=== PATIENT | male | born 1960 | race African-American/Black ===

== ENCOUNTER 2016-10-14 12:26 | Inpatient (IN) | payer OTHER ==
[2016-10-14 13:12] VITALS: BMI 29.8
--- NOTE | 2016-10-14 17:29 | HP ---
CIWA Score - CIWA Score Nausea/Vomitin Muscle Tremors: 4-Moderate,w/Arms Extend Anxiety: 4-Mod. Anxious/Guarded Agitation: 4-Moderately Restless Paroxysmal Sweats: 1-Minimal Palms Moist Orientation: 0-Oriented Tacttile Disturbances: 3-Moderate Itch/Numb/Burn Auditory Disturbances: 0-None Visual Disturbances: 0-None Headache: 1-Very Mild CIWA-Ar Total Score: 20 Admission ROS BHS - HPI Chief Complaint: DETOX TX FOR ALCOHOL DEPENDENCE Allergies/Adverse Reactions: Allergies Allergy/AdvReac Type Severity Reaction Status Date / Time No Known Allergies Allergy Verified 10/14/16 16:51 History of Present Illness: 56 Y/O AA/MALE WITH A HX OF ALCOHOL, COCAINE AND PCP DEPENDENCE SEEKING DETOX TX. FIRST TIME HERE. Exam Limitations: No Limitations - Ebola screening Have you traveled outside of the country in the last 21 days: No Have you had contact with anyone from an Ebola affected area: No Have you been sick,other than usual withdrawal symptoms: No Do you have a fever: No - Review of Systems Constitutional: Night Sweats, Changes in sleep EENT: reports: Blurred Vision (WEARS GLASSES), Tearing, Nose Congestion, Dental Problems (MISSING TEETH) Respiratory: reports: Shortness of Breath (CHF;STENT IN ONE ARTERY) Cardiac: reports: Lightheadedness GI: reports: Constipated, Diarrhea, Nausea, Vomiting : reports: Frequency Musculoskeletal: reports: Back Pain, Joint Pain, Muscle Pain Integumentary: reports: No Symptoms Reported Neuro: reports: Headache, Numbness, Tingling, Tremors, Unsteady Gait, Dizziness Endocrine: reports: No Symptoms Reported Hematology: reports: Anemia Psychiatric: reports: Orientated x3, Anxious, Depressed Other Systems: Reviewed and Negative Patient History - Patient Medical History Hx Anemia: Yes Hx Asthma: No Hx Chronic Obstructive Pulmonary Disease (COPD): No Hx Cardiac Disorders: Yes (CA HX WITH STENT IN 07/2014) Hx Congestive Heart Failure: Yes Hx Hypertension: Yes (ON MED) Hx Hypercholesterolemia: Yes (ON MED) HX Cerebrovascular Accident: No Hx Seizures: No Hx Diabetes: Yes (ON MED) Hx Gastrointestinal Disorders: No Hx Genitourinary Disorders: No Hx Sexually Transmitted Disorders: No Hx Renal Disease (ESRD): Yes (KIDNEY STONES REMOVED 3-4 TIMES) Hx Thyroid Disease: No Hx Human Immunodeficiency Virus (HIV): No (NEGATIVE HX) Hx Hepatitis C: No Hx Depression: Yes Hx Suicide Attempt: No (DENIES) Hx Schizophrenia: No - Patient Surgical History Past Surgical History: Yes Hx Neurologic Surgery: No Hx Cataract Extraction: No Hx Cardiac Surgery: Yes (CATHETERIZATION WITH STENT X 1) Hx Lung Surgery: No Hx Breast Surgery: No Hx Breast Biopsy: No Hx Abdominal Surgery: No Hx Appendectomy: No Hx Cholecystectomy: No Hx Genitourinary Surgery: No Hx Orthopedic Surgery: No Other Surgical History: KIDNEY STONES Anesthesia Reaction: No - PPD History Previous Implant?: Yes Documented Results: Negative w/o proof - Reproductive History Patient is a Female of Child Bearing Age (11 -55 yrs old): No (MALE) - Smoking Cessation Smoking history: Current some day smoker Have you smoked in the past 12 months: Yes Cigars Per Day: 5 (ONLY WITH CRACK) Hx Chewing Tobacco Use: No Initiated information on smoking cessation: Yes 'Breaking Loose' booklet given: 10/14/16 (DECLINED REPLACEMENT TX) - Substance & Tx. History Hx Alcohol Use: Yes (BEER) Hx Substance Use: Yes (COCAINE/PCP) Substance Use Type: Alcohol, Cocaine Hx Substance Use Treatment: Yes (LAST DETOX AT [facility] IN AUGUST 2016) - Substances Abused Alcohol Route: Oral Frequency: Daily Amount used: BEER- 1 SIX PACK-16oz Age of first use: 13 Date of Last Use: 10/13/16 PCP Route: Smoking Frequency: 1-2 times per week Amount used: 1 bag Age of first use: 13 Date of Last Use: 10/13/16 Cocaine Route: Smoking Frequency: Daily Amount used: 6 bags Age of first use: 24 Date of Last Use: 10/13/16 Family Disease History - Family Disease History Family Disease History: Diabetes: Father (HTN;AMPUTATION-), Other: Father, Mother (CVA-) Admission Physical Exam BHS - Vital Signs Vital Signs: Vital Signs - 24 hr 10/14/16 13:09 Temperature 96.0 F L Pulse Rate 85 Respiratory 20 Rate Blood Pressure 138/82 - Physical General Appearance: Yes: Moderate Distress, Irritable, Anxious HEENTM: Yes: EOMI, Normocephalic, BRAD, Photophobia Respiratory: Yes: Chest Non-Tender, Lungs Clear, Normal Breath Sounds Neck: Yes: Supple, Trachea in good position Breast: Yes: Breast Exam Deferred Cardiology: Yes: Regular Rhythm, Regular Rate, S1, S2 Abdominal: Yes: Normal Bowel Sounds, Non Tender, Soft Genitourinary: Yes: Other (N/C) Back: Yes: Within Normal Limits Musculoskeletal: Yes: full range of Motion, Gait Steady Extremities: Yes: Normal Range of Motion, Non-Tender Neurological: Yes: manager e learning II-XII NML intact, Fully Oriented, Alert Integumentary: Yes: Dry, Warm Lymphatic: Yes: Within Normal Limits - Diagnostic (1) Alcohol dependence with uncomplicated withdrawal Current Visit: Yes Status: Acute (2) Cocaine dependence, uncomplicated Current Visit: Yes Status: Acute (3) PCP dependence Current Visit: Yes Status: Acute (4) HTN (hypertension) Current Visit: Yes Status: Chronic Qualifiers: Hypertension type: essential hypertension Qualified Code(s): I10 - Essential (primary) hypertension (5) Status post myocardial infarction Current Visit: Yes Status: Resolved (6) Stented coronary artery Current Visit: Yes Status: Chronic (7) History of CHF (congestive heart failure) Current Visit: Yes Status: Chronic Comment: PT HISTORY (8) Type 2 diabetes mellitus Current Visit: Yes Status: Chronic (9) Hypercholesterolemia Current Visit: Yes Status: Chronic Cleared for Admission [facility] - Detox or Rehab [facility] Level of Care: Medically Managed Detox Regimen/Protocol: Librium [facility] Breath Alcohol Content Breath Alcohol Content: 0 Urine Drug Screen - Results Drug Screen Negative: No Urine Drug Screen Results: ANNETTE-Cocaine, PCP-Phencyclidine
[2016-10-14] MEDS ORDERED: MAGNESIUM HYDROX 2400MG/30ML ORAL SUSPENSION 30 ML CUP PO PRN (17:47)
[2016-10-14] MEDS ORDERED: P-EPHED 60MG/TRIPROLIDI 2.5MG TABLET PO PRN (17:47)
[2016-10-14] MEDS ORDERED: MAG HYDROX/AL HYDROX/SIMETH 30 ML UNIT-DOSE CUP PO PRN (17:47)
[2016-10-14] MEDS ORDERED: guaiFENesin/D-METHORPHAN HB 10 ML UNIT-DOSE CUPS PO PRN (17:47)
[2016-10-14] MEDS ORDERED: chlordiazePOXIDE HCL 25 MG CAPSULE PO PRN (17:47)
[2016-10-14] MEDS ORDERED: MAGNESIUM CITRATE 300 ML BOTTLE PO PRN (17:47)
[2016-10-14] MEDS ORDERED: chlordiazePOXIDE HCL 25 MG CAPSULE PO ONE (17:47)
[2016-10-14] MEDS ORDERED: diphenhydrAMINE HCL 50 MG CAPSULE PO PRN (17:47)
[2016-10-14] MEDS ORDERED: IBUPROFEN 400 MG TABLET (FP) PO PRN (17:47)
[2016-10-14] MEDS ORDERED: MENTHOL/PHENOL 1 EACH UD MM PRN (17:47)
[2016-10-14] MEDS ORDERED: LOPERAMIDE HCL 2 MG CAPSULE PO PRN (17:47)
[2016-10-14] MEDS: SPIRONOLACTONE 25 MG TABLET (FP) PO SCH (19:05)
[2016-10-14] MEDS: LISINOPRIL 10 MG TABLET (FP) PO SCH (19:05)
[2016-10-14] MEDS: METOPROLOL SUCCINATE 25 MG TAB.SR.24H (FP) PO SCH (19:05)
[2016-10-14] MEDS: ASPIRIN COATED 81 MG TABLET.EC PO SCH (19:05)
[2016-10-14] MEDS ORDERED: metFORMIN HCL 500 MG TABLET (FP) PO ONE (19:13)
[2016-10-14 21:11] LABS: URINE APPEARANCE CLEAR; URINE BILIRUBIN NEGATIVE (NEGATIVE); URINE COLOR STRAW; URINE GLUCOSE (UA) 3+ (NEGATIVE); URINE KETONE NEGATIVE (NEGATIVE); URINE LEUK ESTERASE NEGATIVE (NEGATIVE); URINE NITRITE NEGATIVE (NEGATIVE); URINE PROTEIN NEGATIVE (NEGATIVE); URINE UROBILINOGEN NEGATIVE E.U./dl (0.2-1.0)
[2016-10-14 21:15] LABS: URINE BLOOD 2+ (NEGATIVE)
[2016-10-14 21:17] LABS: URINE RBC 17 /hpf (0-3); URINE WBC <1 /hpf (3-5)
[2016-10-14] MEDS ORDERED: CARVEDILOL 6.25 MG TABLET (FP) PO SCH (22:00)
[2016-10-14] MEDS: chlordiazePOXIDE HCL 25 MG CAPSULE PO SCH (22:54)
[2016-10-14] MEDS: THIAMINE HCL 100 MG TABLET (FP) PO SCH (22:55)
[2016-10-14] MEDS: GABAPENTIN 100 MG CAPSULE (FP) PO SCH (22:55)
[2016-10-15] MEDS: GABAPENTIN 100 MG CAPSULE (FP) PO SCH ×5 (05:57→22:05)
[2016-10-15] MEDS: chlordiazePOXIDE HCL 25 MG CAPSULE PO SCH ×4 (05:57→22:05)
[2016-10-15] MEDS: INSULIN SLIDING SCALE (NOVOLOG) 1 VIAL SQ SCH ×2 (06:40→18:31)
[2016-10-15] MEDS: metFORMIN HCL 500 MG TABLET (FP) PO SCH ×2 (06:40→18:31)
[2016-10-15] MEDS ORDERED: PRENATAL VITAMINS W/ FOLIC ACID TABLET (FP) PO SCH (10:00)
[2016-10-15 10:10] LABS: MCHC 32.9 g/dl (32.0-35.9); MEAN CELL VOLUME 91.2 fl (80-96); MEAN PLT VOLUME 9.4 fl (7.5-11.1); PLATELET COUNT 193 K/MM3 (134-434); RDW 13.7 % (11.9-15.9); WHITE BLOOD COUNT 6.4 K/mm3 (4.0-10.0)
--- NOTE | 2016-10-15 10:28 | PN ---
S CIWA - CIWA Score Nausea/Vomitin Muscle Tremors: 3 Anxiety: 3 Agitation: 3 Paroxysmal Sweats: 2 Orientation: 0-Oriented Tacttile Disturbances: 1-Very Mild Itch/Numbness Auditory Disturbances: 1-Very Mild Visual Disturbances: 1-Very Mild Sensitivity Headache: 2-Mild CIWA-Ar Total Score: 19 S Progress Note (SOAP) Subjective: ALERT,IRRITABLE,ANXIOUS,INTERRUPTED SLEEP,TREMOR Objective: 10/15/16 10:26 Vital Signs Temperature 95.9 F L 10/15/16 09:38 Pulse Rate 82 10/15/16 09:38 Respiratory Rate 20 10/15/16 09:38 Blood Pressure 140/86 10/15/16 09:38 O2 Sat by Pulse Oximetry (%) EKG NSR,NORMAL ECG 10/15/16 10:26 Laboratory Last Values Sodium 138 mmol/L (136-145) 10/15/16 06:00 Potassium 4.5 mmol/L (3.5-5.1) 10/15/16 06:00 Chloride 101 mmol/L (98-107) 10/15/16 06:00 POC Glucometer 313 UNITS (()) 10/15/16 06:00 Urine Color Straw 10/14/16 20:45 Urine Appearance Clear 10/14/16 20:45 Urine pH 5.0 (5.0-8.0) 10/14/16 20:45 Ur Specific [place] 1.015 (1.005-1.025) 10/14/16 20:45 Urine Protein Negative (NEGATIVE) 10/14/16 20:45 Urine Glucose (UA) 3+ (NEGATIVE) H 10/14/16 20:45 Urine Ketones Negative (NEGATIVE) 10/14/16 20:45 Urine Blood 2+ (NEGATIVE) H 10/14/16 20:45 Urine Nitrite Negative (NEGATIVE) 10/14/16 20:45 Urine Bilirubin Negative (NEGATIVE) 10/14/16 20:45 Urine Urobilinogen Negative E.U./dl (0.2-1.0) 10/14/16 20:45 Ur Leukocyte Esterase Negative (NEGATIVE) 10/14/16 20:45 Urine RBC 17 /hpf (0-3) 10/14/16 20:45 Urine WBC <1 /hpf (3-5) 10/14/16 20:45 Ur Epithelial Cells Rare /hpf (FEW) 10/14/16 20:45 LABS PENDING Assessment: 10/15/16 10:27 WITHDRAWAL SYMPTOM Plan: CONTINUE DETOX,REPEAT UA
[2016-10-15] MEDS ORDERED: CLOPIDOGREL BISULFATE 75 MG TABLET (FP) PO SCH (10:45)
--- NOTE | 2016-10-15 10:59 | EKG ---
Test Reason : Blood Pressure : / mmHG Vent. Rate : 071 BPM Atrial Rate : 071 BPM P-R Int : 182 ms QRS Dur : 092 ms QT Int : 392 ms P-R-T Axes : 045 078 069 degrees QTc Int : 425 ms NORMAL SINUS RHYTHM NORMAL ECG NO PREVIOUS ECGS AVAILABLE Confirmed by EMILY JARQUIN MD ([id number]) on 10/15/2016 10:58:59 AM Referred By: Confirmed By:EMILY JARQUIN MD
[2016-10-15] MEDS: ASPIRIN COATED 81 MG TABLET.EC PO SCH (11:09)
[2016-10-15] MEDS: METOPROLOL SUCCINATE 25 MG TAB.SR.24H (FP) PO SCH (11:09)
[2016-10-15] MEDS: SPIRONOLACTONE 25 MG TABLET (FP) PO SCH (11:09)
[2016-10-15] MEDS: LISINOPRIL 10 MG TABLET (FP) PO SCH (11:10)
[2016-10-15 11:14] LABS: ALBUMIN 3.6 g/dl (3.4-5.0); BILIRUBIN,TOTAL 0.4 mg/dL (0.2-1.0); CALCIUM 9.3 mg/dL (8.5-10.1); COCKROFT - GAULT 75.44; CREATININE 1.4 mg/dL (0.7-1.3); TOT PROT 7.2 g/dl (6.4-8.2)
[2016-10-15 12:40] LABS: SICKLE CELL SCREEN NEGATIVE (NEGATIVE)
--- NOTE | 2016-10-15 16:16 | CONSULT ---
[facility] Psychiatric Consult - Data Date of interview: 10/15/16 Admission source: [facility] Identifying data: First admission to [facility] for this 56 y/o AA male seeking detox treatment for alcohol,cocaine and phencyclidine dependence.Patient is single without children,homeless,unemployed and supported on welfare. Substance Abuse History: - Smoking Cessation. Smoking history: Current some day smoker. Have you smoked in the past 12 months: Yes. Cigars Per Day: 5 ( ONLY WITH CRACK). Hx Chewing Tobacco Use: No. Initiated information on smoking cessation: Yes. 'Breaking Loose' booklet given: 10/14/16 (DECLINED REPLACEMENT [place]). - Substance & Tx. History. Hx Alcohol Use: Yes (BEER). Hx Substance Use: Yes (COCAINE/PCP). Substance Use Type: Alcohol, Cocaine. Hx Substance Use Treatment: Yes (LAST DETOX AT [facility] IN AUGUST 2016). - Substances Abused. Alcohol. Route: Oral. Frequency: Daily. Amount used: BEER- 1 SIX PACK-16oz. Age of first use: 13. Date of Last Use: 10/13/16. PCP. Route: Smoking. Frequency: 1-2 times per week. Amount used: 1 bag. Age of first use : 13. Date of Last Use: 10/13/16. Cocaine. Route: Smoking. Frequency: Daily. Amount used: 6 bags. Age of first use: 24. Date of Last Use: . Confirmed by patient. Medical History: Anemia,CHF,history of myocardial infarction in 2014 (stent placement),diabetes mellitus,dyslipidemia,neuropathy,hypertension and nephrolithiasis. Psychiatric History: No reported history of psychiatric hospitalizations.No background of psychiatric OPD care.Mr Booker reports that he sees a " therapist " in [facility] for a " psychosocial " report,a crucial document to support his quest for housing.Not on psychotropic medications.Patient denies history of suicide attempts. Physical/Sexual Abuse/Trauma History: Patient denies. Additional Comment: Urine Drug Screen Results: ANNETTE-Cocaine, PCP- Phencyclidine.Noted. Mental Status Exam - Mental Status Exam Alert and Oriented to: Time, Place, Person Cognitive Function: Good Patient Appearance: Well Groomed Mood: Hopeful, Euthymic Affect: Appropriate, Normal Range Patient Behavior: Appropriate, Cooperative (friendly) Speech Pattern: Clear, Appropriate Voice Loudness: Normal Thought Process: Intact, Goal Oriented Thought Disorder: Not Present Hallucinations: Denies Suicidal Ideation: Denies Homicidal Ideation: Denies Insight/Judgement: Fair Sleep: Well Appetite: Good Muscle strength/Tone: Normal Gait/Station: Normal Psychiatric Findings - Problem List ([place] 1, 2,3) (1) Alcohol dependence with uncomplicated withdrawal Current Visit: Yes Status: Acute (2) Cocaine dependence, uncomplicated Current Visit: Yes Status: Acute (3) PCP dependence Current Visit: Yes Status: Acute (4) Nicotine dependence Current Visit: Yes Status: Acute (5) HTN (hypertension) Current Visit: Yes Status: Chronic Qualifiers: Hypertension type: essential hypertension Qualified Code(s): I10 - Essential (primary) hypertension (6) History of CHF (congestive heart failure) Current Visit: Yes Status: Chronic Comment: PT HISTORY (7) Hypercholesterolemia Current Visit: Yes Status: Chronic (8) Stented coronary artery Current Visit: Yes Status: Chronic (9) Type 2 diabetes mellitus Current Visit: Yes Status: Chronic - Initial Treatment Plan Initial Treatment Plan: Psychoeducation.Detoxification.Observation.
[2016-10-15] MEDS ORDERED: INSULIN (NOVOLOG) ASPART 100 UNITS/ML 10ML VIAL ONE (17:09)
[2016-10-15 17:26] LABS: URINE APPEARANCE CLEAR; URINE BILIRUBIN NEGATIVE (NEGATIVE); URINE COLOR STRAW; URINE GLUCOSE (UA) 3+ (NEGATIVE); URINE KETONE NEGATIVE (NEGATIVE); URINE LEUK ESTERASE NEGATIVE (NEGATIVE); URINE NITRITE NEGATIVE (NEGATIVE); URINE PROTEIN NEGATIVE (NEGATIVE); URINE UROBILINOGEN NEGATIVE E.U./dl (0.2-1.0)
[2016-10-15 17:32] LABS: URINE BLOOD 1+ (NEGATIVE)
[2016-10-15 17:40] LABS: URINE MUCUS RARE; URINE RBC 11 /hpf (0-3); URINE WBC 2 /hpf (3-5)
[2016-10-15] MEDS: ACETAMINOPHEN 325 MG TABLET (FP) PO PRN (18:32)
[2016-10-15] MEDS: THIAMINE HCL 100 MG TABLET (FP) PO SCH (22:05)
[2016-10-16] MEDS: GABAPENTIN 100 MG CAPSULE (FP) PO SCH (05:37)
[2016-10-16] MEDS: ACETAMINOPHEN 325 MG TABLET (FP) PO PRN (05:39)
[2016-10-16] MEDS: chlordiazePOXIDE HCL 25 MG CAPSULE PO SCH (06:04)
[2016-10-16] MEDS: metFORMIN HCL 500 MG TABLET (FP) PO SCH (06:05)
[2016-10-16 06:17] VITALS: BP 133/89; PULSE 75; TEMP 96.9
[2016-10-16] MEDS ORDERED: INSULIN (NOVOLOG) ASPART 100 UNITS/ML 10ML VIAL ONE (08:07)
[2016-10-16] MEDS: INSULIN SLIDING SCALE (NOVOLOG) 1 VIAL SQ SCH (08:10)
--- NOTE | 2016-10-16 08:42 | PN ---
S CIWA - CIWA Score Nausea/Vomitin Muscle Tremors: 3 Anxiety: 2 Agitation: 2 Paroxysmal Sweats: No Perspiration Orientation: 0-Oriented Tacttile Disturbances: 1-Very Mild Itch/Numbness Auditory Disturbances: 1-Very Mild Visual Disturbances: 1-Very Mild Sensitivity Headache: 2-Mild CIWA-Ar Total Score: 14 BHS Progress Note (SOAP) Subjective: alert,irritable,anxious,interrupted sleep,pain in the body Objective: 10/16/16 08:52 Vital Signs Temperature 96.9 F L 10/16/16 06:17 Pulse Rate 75 10/16/16 06:17 Respiratory Rate 18 10/16/16 06:17 Blood Pressure 133/89 10/16/16 06:17 O2 Sat by Pulse Oximetry (%) Assessment: 10/16/16 08:52 withdrawal symptom Plan: continue detox
--- NOTE | 2016-10-16 08:59 | PN ---
S Progress Note Note: patient is fighting with other patient,throwing the food ,disruptive the unit, verbally abusive,securities present on unit,discharge, escorted off unit by securities
--- NOTE | 2016-10-16 09:08 | DS ---
[facility] Detox Discharge Summary Admission Date: 10/14/16 Discharge Date: 10/16/16 - History Present History: Alcohol Dependence, Cocaine Dependence, Pcp Dependence Additional Comments: patient is fighting with other patient,threatening the other patient and staff, verbally abusive,disruptive the unit, escorted off the unit by securities, Pertinent Past History: hypertension post mi s/p angioplasty with stent type 2 dm hypercholesterolemia history of chf - Physical Exam Results Vital Signs: Vital Signs Temperature 96.9 F L 10/16/16 06:17 Pulse Rate 75 10/16/16 06:17 Respiratory Rate 18 10/16/16 06:17 Blood Pressure 133/89 10/16/16 06:17 O2 Sat by Pulse Oximetry (%) Pertinent Admission Physical Exam Findings: withdrawal symptom - Medication Discharge Medications: Ambulatory Orders Acetaminophen [Mapap] 500 mg PO DAILY 10/14/16 Aspirin [Aspirin EC] 81 mg PO DAILY 10/14/16 Carvedilol [Coreg -] 6.25 mg PO BID 10/14/16 Gabapentin [Neurontin -] 300 mg PO Q8H 10/14/16 Lisinopril 10 mg PO DAILY 10/14/16 Metformin HCl [Glucophage] 1,000 mg PO BID 10/14/16 Metoprolol Succinate [Toprol Xl -] 25 mg PO DAILY 10/14/16 Spironolactone [Aldactone] 25 mg PO DAILY 10/14/16 Clopidogrel Bisulfate [Plavix -] 75 mg PO DAILY 10/15/16 - AMA Did Patient Leave Against Medical Advice: No
[2016-10-16] MEDS ORDERED: chlordiazePOXIDE 5 MG CAPSULE PO SCH (23:00)
[2016-10-17] MEDS ORDERED: chlordiazePOXIDE HCL 10 MG CAPSULE PO SCH (23:00)
== END 2016-10-16 08:55 | disposition home or self-care (01) | DRG 774 ==
LOC: YASAS 12:26 → Y6N 18:00
PROVIDERS: ADMIT Internal Medicine; ATTEND Internal Medicine
PROC: HZ2ZZZZ Detoxification Services for Substance Abuse Treatment (ICD-10-PCS; principal; 2016-10-14)
DX: F10.230 Alcohol dependence with withdrawal, uncomplicated (principal); F14.20 Cocaine dependence, uncomplicated; F16.20 Hallucinogen dependence, uncomplicated; F91.8 Other conduct disorders; I10 Essential (primary) hypertension; I50.9 Heart failure, unspecified; I25.2 Old myocardial infarction; E11.9 Type 2 diabetes mellitus without complications; E78.5 Hyperlipidemia, unspecified; G62.9 Polyneuropathy, unspecified; Z95.5 Presence of coronary angioplasty implant and graft; Z86.2 Personal history of diseases of the blood and blood-forming organs and certain disorders involving the immune mechanism; Z79.4 Long term (current) use of insulin; Z79.84 Long term (current) use of oral hypoglycemic drugs; Z59.0 Homelessness
CPT/HCPCS: 36415; 80053; 81003; 81015; 85027; 85660; 86593; 93005; 93010